=== PATIENT | male | born 1985 ===

== ENCOUNTER 2020-08-25 15:32 | Emergency (ER) | payer SELFPAY ==
[~2020-08-25] VITALS: Ht 182.9 cm; Wt 115.0 kg
--- NOTE | 2020-08-25 15:44 | NUR ---
PT PLACED ON ALL ROOM MONITORING. RESP ISOLATION, CART AND SIGNAGE IN PLACE. CALL LIGHT WITHIN REACH. EKG COMPLETED ON ARRIVAL.
[2020-08-25] MEDS ORDERED: ACETAMINOPHEN 500 MG TABLET ONE (16:13)
--- NOTE | 2020-08-25 16:26 | NUR ---
MEDS AND IVF BOLUS GIVEN PER ERP ORDER. PT UPDATED ON POC. URINAL AT BS. LAB IN TO DRAW. CALL LIGHT WITHIN REACH.
[2020-08-25] MEDS ORDERED: SODIUM CHLORIDE 0.9% 1,000ML IVBOLUS ONE (16:30)
[2020-08-25] MEDS ORDERED: ACETAMINOPHEN 500 MG TABLET PO ONE (16:30)
[2020-08-25] MEDS ORDERED: SODIUM CHLORIDE FLUSH 10ML SYR IVF ONE (16:30)
--- NOTE | 2020-08-25 16:44 | NUR ---
URINE COLLECTED/SENT TO LAB. PT C/O BEING COLD, TEMP RECHECK 102.5. CALL LIGHT WITHIN REACH.
[2020-08-25 16:46] LABS: BASOPHILS % (AUTO) 1 % (0-1); EOSINOPHILS % (AUTO) 0 % (1-7); LYMPHOCYTES % (AUTO) 11 % (22-44); MEAN CORPUSCULAR HEMOGLOBIN 28.9 pg (27.5-34.5); MEAN CORPUSCULAR HGB CONC 33.8 g/dL (33.2-36.2); MEAN PLATELET VOLUME 7.9 fL (7.4-10.4); MONOCYTES % (AUTO) 8 % (2-9); NEUTROPHILS % (AUTO) 80 % (42-75); PLATELET COUNT 202 x10^3/uL (130-400); RED BLOOD COUNT 5.02 x10^6/uL (4.38-5.82); RED CELL DISTRIBUTION WIDTH 13.5 % (9.4-14.8)
[2020-08-25 16:47] LABS: MD NO
[2020-08-25 16:52] LABS: ALANINE AMINOTRANSFERASE 48 U/L (12-78); ALBUMIN 3.9 g/dL (3.4-5.0); ANION GAP 4 mmol/L (5-15); CALCIUM 8.1 mg/dL (8.5-10.1); CHLORIDE 108 mmol/L (98-107)
[2020-08-25 16:54] LABS: ALKALINE PHOSPHATASE 66 U/L (45-117); BILIRUBIN,TOTAL 0.2 mg/dL (0.2-1.0); CREATININE 1.59 mg/dL (0.7-1.3); TOTAL PROTEIN 7.4 g/dL (6.4-8.2)
[2020-08-25 17:05] LABS: MICROSCOPIC NOT IND
[2020-08-25 17:47] VITALS: BP 142/67
== END 2020-08-25 18:08 | disposition home or self-care (01) ==
LOC: ED 18:02
DX: R50.9 Fever, unspecified (principal); Z20.822 Contact with and (suspected) exposure to COVID-19; R51.9 Headache, unspecified; R05 Cough; R53.1 Weakness; R10.84 Generalized abdominal pain
CPT/HCPCS: 36415; 71045; 80053; 81003; 83605; 84145; 85025; 87040; 93005; 99285; J7030; U0003

== ENCOUNTER 2020-08-28 20:29 | Inpatient (IN) | payer OTHER ==
[~2020-08-28] VITALS: Ht 182.9 cm; Wt 113.5 kg
--- NOTE | 2020-08-28 20:39 | NUR ---
REHAB LIAISON: PT TAKEN BACK TO ER ROOM. PT PLACED ON SPO2/BP/ECG MONITORING AT THIS TIME.
--- NOTE | 2020-08-28 20:40 | NUR ---
PLACED ON 2L O2 NC FOR RA SAT @89%
--- NOTE | 2020-08-28 20:55 | NUR ---
PT ROLLED TO ROOM IN WHEELCHAIR, PLACED ON CR MONITOR, AND O2 SAT PROBE. PT IN MILD RESPIRATORY DISTRESS, AND SITTING UP IN BED. PIV STARTED TO LEFT HAND 18G X1 ATTEMPT, AND FLUSHED EASY, AND SECURED. 1L NS HUNG PT HAS BEEN UNABLE TO KEEP FLUIDS DOWN. PA TO BEDSIDE TO EVAL PT, AND WRITE ORDERS. LAB COLLECTED WITH PIV START, AND URINE COLLECTED.
[2020-08-28] MEDS ORDERED: ONDANSETRON 2MG/ML, 2ML IVPush ONE (21:00)
[2020-08-28] MEDS ORDERED: SODIUM CHLORIDE FLUSH 10ML SYR IVF ONE (21:00)
[2020-08-28] MEDS ORDERED: SODIUM CHLORIDE 0.9% 1,000ML IVBOLUS ONE (21:00)
[2020-08-28] MEDS ORDERED: ACETAMINOPHEN 325 MG TABLET PO ONE (21:00)
[2020-08-28] MEDS ORDERED: ONDANSETRON 2MG/ML, 2ML ONE (21:10)
[2020-08-28] MEDS ORDERED: ACETAMINOPHEN 325 MG TABLET ONE (21:10)
[2020-08-28 21:24] LABS: BASOPHILS % (AUTO) 0 % (0-1); EOSINOPHILS % (AUTO) 0 % (1-7); LYMPHOCYTES % (AUTO) 10 % (22-44); MEAN CORPUSCULAR HEMOGLOBIN 29.4 pg (27.5-34.5); MEAN CORPUSCULAR HGB CONC 34.9 g/dL (33.2-36.2); MEAN PLATELET VOLUME 8.3 fL (7.4-10.4); MONOCYTES % (AUTO) 7 % (2-9); NEUTROPHILS % (AUTO) 83 % (42-75); PLATELET COUNT 157 x10^3/uL (130-400); RED BLOOD COUNT 5.03 x10^6/uL (4.38-5.82); RED CELL DISTRIBUTION WIDTH 13.6 % (9.4-14.8)
[2020-08-28 21:32] LABS: ALANINE AMINOTRANSFERASE 49 U/L (12-78); ALBUMIN 3.7 g/dL (3.4-5.0); ANION GAP 8 mmol/L (5-15); CALCIUM 8.3 mg/dL (8.5-10.1); CHLORIDE 106 mmol/L (98-107); CREATININE 1.57 mg/dL (0.7-1.3)
[2020-08-28 21:34] LABS: ALKALINE PHOSPHATASE 66 U/L (45-117); BILIRUBIN,TOTAL 0.4 mg/dL (0.2-1.0); TOTAL PROTEIN 7.8 g/dL (6.4-8.2)
[2020-08-28 21:35] LABS: MD NO
--- NOTE | 2020-08-28 22:25 | NUR ---
PT UP TO COMMODE TO USE THE RESTROOM TO STOOL. PT AMBULATORY AND STEADY GAIT, MILD RESPIRATORY DISTRESS. BREATH SOUNDS CLEAR AT THIS TIME, BILATERALLY TO AUSCULTATION. PT PLACED BACK ON CR MONITOR, AND REMAINS ON O2 NC 2 LPM. PIV INTACT AND 1LNS IVF FINISHED.
[2020-08-28] MEDS ORDERED: NS + 20MEQ KCL 1,000 ML IV ONE (22:30)
[2020-08-28] MEDS ORDERED: KETOROLAC 30 MG/1 ML IVPush ONE (22:30)
[2020-08-28] MEDS ORDERED: BISACODYL 10 MG SUPP PR PRN (23:00)
[2020-08-28] MEDS ORDERED: MELATONIN 5 MG TABLET PO PRN (23:00)
[2020-08-28] MEDS ORDERED: ALBUTEROL HFA 90 MCG/SPRAY INH PRN (23:00)
[2020-08-28] MEDS ORDERED: LIDODERM 5% PATCH TD PRN (23:00)
[2020-08-28] MEDS ORDERED: POLYETHYLENE GLYCOL 17 GM PACKET PO PRN (23:00)
[2020-08-28] MEDS ORDERED: PROMETHAZINE 25 MG/ML, 1ML IM PRN (23:00)
--- NOTE | 2020-08-28 23:00 | NUR ---
REPORT GIVEN TO KENA BENJAMIN AND PT PREPARED FOR TRANSPORT. WITH ISOLATION PRECAUTIONS. PT TRANSFERRED TO FLOOR WITHOUT INCIDENT. GALI ON MONITOR.
[2020-08-28] MEDS ORDERED: LACTATED RINGERS 1,000 ML IV SCH (23:30)
[2020-08-28 23:33] VITALS: BP 127/80
[2020-08-28] MEDS: MELATONIN 5 MG TABLET PO SCH (23:48)
[2020-08-28] MEDS: ASCORBIC ACID 500 MG TABLET PO SCH (23:48)
[2020-08-28] MEDS: CEFTRIAXONE PMX 2GM/50ML 50 ML IVPB SCH (23:48)
[2020-08-28] MEDS: ENOXAPARIN 40 MG/0.4 ML SQ SCH (23:49)
[2020-08-28] MEDS: AZITHROMYCIN 500 MG in SODIUM CHLORIDE 0.9% 250 ML IV SCH (23:56)
[2020-08-29 05:31] LABS: BASOPHILS % (AUTO) 1 % (0-1); EOSINOPHILS % (AUTO) 0 % (1-7); LYMPHOCYTES % (AUTO) 19 % (22-44); MEAN CORPUSCULAR HEMOGLOBIN 29.1 pg (27.5-34.5); MEAN CORPUSCULAR HGB CONC 34.4 g/dL (33.2-36.2); MEAN PLATELET VOLUME 8.5 fL (7.4-10.4); MONOCYTES % (AUTO) 7 % (2-9); NEUTROPHILS % (AUTO) 73 % (42-75); PLATELET COUNT 146 x10^3/uL (130-400); RED CELL DISTRIBUTION WIDTH 13.6 % (9.4-14.8)
[2020-08-29 05:33] LABS: MD NO
[2020-08-29 05:39] LABS: INTERNATIONAL NORMALIZED RATIO 1.06 (0.93-1.1); PROTHROMBIN TIME 11.3 Seconds (9.6-11.5)
[2020-08-29 05:42] LABS: ANION GAP 5 mmol/L (5-15); CALCIUM 8.1 mg/dL (8.5-10.1); CHLORIDE 108 mmol/L (98-107)
[2020-08-29 05:49] LABS: CREATININE 1.29 mg/dL (0.7-1.3)
[2020-08-29 07:22] VITALS: BP 123/71
[2020-08-29] MEDS ORDERED: DEXAMETHASONE 4 MG/ML, 1ML IVPush SCH (09:00)
[2020-08-29] MEDS: SENNA/DOCUSATE TABLET PO SCH (09:00)
[2020-08-29] MEDS ORDERED: DEXAMETHASONE 4 MG/ML, 1ML IVPush ONE (09:00)
[2020-08-29] MEDS ORDERED: REMDESIVIR 200 MG in SODIUM CHLORIDE 0.9% 250 ML IVPB ONE (09:30)
[2020-08-29] MEDS: ACETAMINOPHEN 325 MG TABLET PO PRN ×2 (09:43→20:12)
[2020-08-29] MEDS: BENZONATATE 100 MG CAPSULE PO SCH ×3 (09:43→20:11)
[2020-08-29] MEDS: ASCORBIC ACID 500 MG TABLET PO SCH ×2 (09:43→17:44)
[2020-08-29] MEDS: CHOLECALCIFEROL 5,000u TAB PO SCH (09:44)
[2020-08-29] MEDS: ZINC SULFATE 220 MG CAPSULE PO SCH (09:44)
[2020-08-29] MEDS: ONDANSETRON 2MG/ML, 2ML IVPush PRN (09:48)
[2020-08-29] MEDS ORDERED: FUROSEMIDE 20 MG/2 ML IV ONE (11:00)
[2020-08-29] MEDS: THIAMINE 100MG TABLET PO SCH (11:51)
[2020-08-29 13:15] VITALS: BP 124/80
[2020-08-29 15:07] LABS: OCCULT BLOOD NEGATIVE (NEGATIVE)
[2020-08-29 19:39] VITALS: BP 123/81
[2020-08-29] MEDS: MELATONIN 5 MG TABLET PO SCH (20:11)
[2020-08-29] MEDS: ENOXAPARIN 40 MG/0.4 ML SQ SCH (23:07)
[2020-08-29] MEDS: CEFTRIAXONE PMX 2GM/50ML 50 ML IVPB SCH (23:07)
[2020-08-29] MEDS: AZITHROMYCIN 500 MG in SODIUM CHLORIDE 0.9% 250 ML IV SCH (23:56)
[2020-08-30 01:28] VITALS: BP 120/75
[2020-08-30 05:38] LABS: BASOPHILS % (AUTO) 1 % (0-1); EOSINOPHILS % (AUTO) 0 % (1-7); LYMPHOCYTES % (AUTO) 12 % (22-44); MEAN CORPUSCULAR HEMOGLOBIN 29.3 pg (27.5-34.5); MEAN CORPUSCULAR HGB CONC 34.3 g/dL (33.2-36.2); MEAN PLATELET VOLUME 8.3 fL (7.4-10.4); MONOCYTES % (AUTO) 8 % (2-9); NEUTROPHILS % (AUTO) 80 % (42-75); PLATELET COUNT 179 x10^3/uL (130-400); RED CELL DISTRIBUTION WIDTH 13.5 % (9.4-14.8)
[2020-08-30 05:39] LABS: ANION GAP 5 mmol/L (5-15); CALCIUM 8.3 mg/dL (8.5-10.1); CHLORIDE 104 mmol/L (98-107)
[2020-08-30 05:41] LABS: D-DIMER 0.73 ug/mlFEU (0.00-0.52)
[2020-08-30 05:46] LABS: ALANINE AMINOTRANSFERASE 70 U/L (12-78); ALKALINE PHOSPHATASE 62 U/L (45-117); BILIRUBIN,TOTAL 0.3 mg/dL (0.2-1.0); CREATININE 1.25 mg/dL (0.7-1.3); TOTAL PROTEIN 7.1 g/dL (6.4-8.2)
[2020-08-30 05:49] LABS: MD NO
[2020-08-30 07:58] VITALS: BP 123/78
[2020-08-30] MEDS: BENZONATATE 100 MG CAPSULE PO SCH ×3 (08:29→21:15)
[2020-08-30] MEDS: DEXAMETHASONE 4 MG/ML, 1ML IVPush SCH (08:30)
[2020-08-30] MEDS: THIAMINE 100MG TABLET PO SCH (08:30)
[2020-08-30] MEDS: ZINC SULFATE 220 MG CAPSULE PO SCH (08:30)
[2020-08-30] MEDS: CHOLECALCIFEROL 5,000u TAB PO SCH (08:30)
[2020-08-30] MEDS: SENNA/DOCUSATE TABLET PO SCH (08:30)
[2020-08-30] MEDS: ASCORBIC ACID 500 MG TABLET PO SCH ×2 (08:30→15:37)
[2020-08-30] MEDS: ACETAMINOPHEN 325 MG TABLET PO PRN (08:34)
[2020-08-30] MEDS: ONDANSETRON 2MG/ML, 2ML IVPush PRN (08:49)
[2020-08-30] MEDS: REMDESIVIR 100 MG in SODIUM CHLORIDE 0.9% 250 ML IVPB SCH (10:05)
[2020-08-30 13:31] VITALS: BP 128/80
[2020-08-30] MEDS ORDERED: OMNIPAQUE 350 MG/ML, 100ML BOTTLE ONE (17:27)
[2020-08-30] MEDS: MELATONIN 5 MG TABLET PO SCH (21:16)
[2020-08-30 22:50] VITALS: BP 134/74
[2020-08-30] MEDS: CEFTRIAXONE PMX 2GM/50ML 50 ML IVPB SCH (22:54)
[2020-08-30] MEDS: ENOXAPARIN 40 MG/0.4 ML SQ SCH (22:55)
[2020-08-30] MEDS: AZITHROMYCIN 500 MG in SODIUM CHLORIDE 0.9% 250 ML IV SCH (23:58)
[2020-08-31 05:09] LABS: HCT (SEDRATE) 39.4 % (39.2-51.8)
[2020-08-31 05:10] LABS: BASOPHILS % (AUTO) 0 % (0-1); EOSINOPHILS % (AUTO) 0 % (1-7); LYMPHOCYTES % (AUTO) 10 % (22-44); MEAN CORPUSCULAR HEMOGLOBIN 28.5 pg (27.5-34.5); MEAN CORPUSCULAR HGB CONC 33.7 g/dL (33.2-36.2); MEAN PLATELET VOLUME 8.1 fL (7.4-10.4); MONOCYTES % (AUTO) 8 % (2-9); NEUTROPHILS % (AUTO) 82 % (42-75); PLATELET COUNT 231 x10^3/uL (130-400); RED BLOOD COUNT 4.68 x10^6/uL (4.38-5.82); RED CELL DISTRIBUTION WIDTH 13.4 % (9.4-14.8)
[2020-08-31 05:11] LABS: MD NO
[2020-08-31 05:23] LABS: ANION GAP 6 mmol/L (5-15); CALCIUM 8.5 mg/dL (8.5-10.1); CHLORIDE 104 mmol/L (98-107)
[2020-08-31 05:33] LABS: ALANINE AMINOTRANSFERASE 83 U/L (12-78); ALKALINE PHOSPHATASE 60 U/L (45-117); BILIRUBIN,TOTAL 0.3 mg/dL (0.2-1.0); CREATININE 1.17 mg/dL (0.7-1.3)
[2020-08-31 08:26] VITALS: BP 126/79
[2020-08-31] MEDS: SENNA/DOCUSATE TABLET PO SCH (09:00)
[2020-08-31] MEDS: REMDESIVIR 100 MG in SODIUM CHLORIDE 0.9% 250 ML IVPB SCH (09:35)
[2020-08-31] MEDS: BENZONATATE 100 MG CAPSULE PO SCH ×3 (09:35→20:41)
[2020-08-31] MEDS: ASCORBIC ACID 500 MG TABLET PO SCH ×2 (09:35→17:29)
[2020-08-31] MEDS: DEXAMETHASONE 4 MG/ML, 1ML IVPush SCH (09:35)
[2020-08-31] MEDS: ZINC SULFATE 220 MG CAPSULE PO SCH (09:35)
[2020-08-31] MEDS: CHOLECALCIFEROL 5,000u TAB PO SCH (09:36)
[2020-08-31] MEDS: THIAMINE 100MG TABLET PO SCH (09:36)
[2020-08-31] MEDS: ACETAMINOPHEN 325 MG TABLET PO PRN ×2 (09:50→20:41)
[2020-08-31 12:11] VITALS: BP 122/69
[2020-08-31] MEDS: GUAIFENESIN/DM 200-20MG, 10ML UDC PO PRN ×2 (17:29→23:33)
[2020-08-31 19:39] VITALS: BP 138/84
[2020-08-31] MEDS: MELATONIN 5 MG TABLET PO SCH (20:41)
[2020-08-31] MEDS: ENOXAPARIN 40 MG/0.4 ML SQ SCH (22:59)
[2020-08-31] MEDS: CEFTRIAXONE PMX 2GM/50ML 50 ML IVPB SCH (22:59)
[2020-09-01] MEDS: AZITHROMYCIN 500 MG in SODIUM CHLORIDE 0.9% 250 ML IV SCH (00:02)
[2020-09-01 02:05] VITALS: BP 104/67
[2020-09-01 05:49] LABS: CHLORIDE 107 mmol/L (98-107)
[2020-09-01 05:56] LABS: ALANINE AMINOTRANSFERASE 148 U/L (12-78); ALKALINE PHOSPHATASE 64 U/L (45-117); ANION GAP 7 mmol/L (5-15); BILIRUBIN,TOTAL 0.5 mg/dL (0.2-1.0); CALCIUM 8.6 mg/dL (8.5-10.1); CREATININE 1.05 mg/dL (0.7-1.3); TOTAL PROTEIN 6.8 g/dL (6.4-8.2)
[2020-09-01] MEDS: SENNA/DOCUSATE TABLET PO SCH (08:30)
[2020-09-01] MEDS: BENZONATATE 100 MG CAPSULE PO SCH ×3 (08:31→22:23)
[2020-09-01] MEDS: ZINC SULFATE 220 MG CAPSULE PO SCH (08:31)
[2020-09-01] MEDS: CHOLECALCIFEROL 5,000u TAB PO SCH (08:31)
[2020-09-01] MEDS: DEXAMETHASONE 4 MG/ML, 1ML IVPush SCH (08:31)
[2020-09-01] MEDS: THIAMINE 100MG TABLET PO SCH (08:31)
[2020-09-01] MEDS: ASCORBIC ACID 500 MG TABLET PO SCH ×2 (08:31→17:06)
[2020-09-01 08:49] VITALS: BP 132/72
[2020-09-01] MEDS: ACETAMINOPHEN 325 MG TABLET PO PRN ×2 (08:49→22:23)
[2020-09-01] MEDS: REMDESIVIR 100 MG in SODIUM CHLORIDE 0.9% 250 ML IVPB SCH (09:52)
[2020-09-01 14:52] VITALS: BP 132/78
[2020-09-01 20:57] VITALS: BP 129/72
[2020-09-01] MEDS: ENOXAPARIN 40 MG/0.4 ML SQ SCH (22:23)
[2020-09-01] MEDS: CEFTRIAXONE PMX 2GM/50ML 50 ML IVPB SCH (22:24)
[2020-09-01] MEDS: MELATONIN 5 MG TABLET PO SCH (22:24)
[2020-09-02] MEDS: AZITHROMYCIN 500 MG in SODIUM CHLORIDE 0.9% 250 ML IV SCH ×2 (00:21→23:58)
[2020-09-02 00:25] VITALS: BP 116/66
[2020-09-02 05:31] LABS: CHLORIDE 107 mmol/L (98-107)
[2020-09-02 05:38] LABS: ALANINE AMINOTRANSFERASE 170 U/L (12-78); ALKALINE PHOSPHATASE 62 U/L (45-117); ANION GAP 4 mmol/L (5-15); BILIRUBIN,TOTAL 0.4 mg/dL (0.2-1.0); CALCIUM 8.5 mg/dL (8.5-10.1); CREATININE 1.08 mg/dL (0.7-1.3); TOTAL PROTEIN 6.7 g/dL (6.4-8.2)
[2020-09-02 08:43] VITALS: BP 126/72
[2020-09-02] MEDS: ZINC SULFATE 220 MG CAPSULE PO SCH (08:49)
[2020-09-02] MEDS: BENZONATATE 100 MG CAPSULE PO SCH ×3 (08:49→22:51)
[2020-09-02] MEDS: THIAMINE 100MG TABLET PO SCH (08:49)
[2020-09-02] MEDS: ASCORBIC ACID 500 MG TABLET PO SCH ×2 (08:49→16:22)
[2020-09-02] MEDS: DEXAMETHASONE 4 MG/ML, 1ML IVPush SCH (08:49)
[2020-09-02] MEDS: SENNA/DOCUSATE TABLET PO SCH (08:49)
[2020-09-02] MEDS: CHOLECALCIFEROL 5,000u TAB PO SCH (08:49)
[2020-09-02] MEDS: REMDESIVIR 100 MG in SODIUM CHLORIDE 0.9% 250 ML IVPB SCH (09:55)
[2020-09-02 14:50] VITALS: BP 135/84
[2020-09-02 21:45] VITALS: BP 125/75
[2020-09-02] MEDS: MELATONIN 5 MG TABLET PO SCH (22:51)
[2020-09-02] MEDS: ENOXAPARIN 40 MG/0.4 ML SQ SCH (22:52)
[2020-09-02] MEDS: CEFTRIAXONE PMX 2GM/50ML 50 ML IVPB SCH (22:52)
[2020-09-03 02:20] VITALS: BP 114/70
[2020-09-03 05:19] LABS: CHLORIDE 104 mmol/L (98-107)
[2020-09-03 05:26] LABS: ALANINE AMINOTRANSFERASE 130 U/L (12-78); ALBUMIN 3.1 g/dL (3.4-5.0); ALKALINE PHOSPHATASE 63 U/L (45-117); ANION GAP 6 mmol/L (5-15); BILIRUBIN,TOTAL 0.5 mg/dL (0.2-1.0); CALCIUM 8.6 mg/dL (8.5-10.1); CREATININE 1.01 mg/dL (0.7-1.3); TOTAL PROTEIN 6.9 g/dL (6.4-8.2)
[2020-09-03] MEDS: SENNA/DOCUSATE TABLET PO SCH (08:04)
[2020-09-03 08:21] VITALS: BP 98/59
[2020-09-03] MEDS: THIAMINE 100MG TABLET PO SCH (08:26)
[2020-09-03] MEDS: ASCORBIC ACID 500 MG TABLET PO SCH ×2 (08:26→16:29)
[2020-09-03] MEDS: DEXAMETHASONE 4 MG/ML, 1ML IVPush SCH (08:26)
[2020-09-03] MEDS: BENZONATATE 100 MG CAPSULE PO SCH ×2 (08:26→16:28)
[2020-09-03] MEDS: CHOLECALCIFEROL 5,000u TAB PO SCH (08:26)
[2020-09-03] MEDS: ZINC SULFATE 220 MG CAPSULE PO SCH (08:26)
[2020-09-03 13:49] VITALS: BP 115/67
[2020-09-03] MEDS ORDERED: THIA100T67 PO (16:04)
[2020-09-03] MEDS ORDERED: BENZ-17 PO (16:04)
[2020-09-03] MEDS ORDERED: PRED10TA PO (16:04)
[2020-09-03] MEDS ORDERED: CHOL500045 PO (16:04)
[2020-09-03] MEDS ORDERED: ASCO500T9 PO (16:04)
== END 2020-09-03 16:49 | disposition home or self-care (01) | DRG 871 ==
LOC: ED 22:36 → EDIP 22:37 → 3N 23:08
PROVIDERS: ADMIT Family Medicine; ATTEND Hospitalist
PROC: XW033E5 Introduction of Remdesivir Anti-infective into Peripheral Vein, Percutaneous Approach, New Technology Group 5 (ICD-10-PCS; principal; 2020-08-29)
DX: A41.89 Other specified sepsis (principal); U07.1 COVID-19; J12.82 Pneumonia due to coronavirus disease 2019; J96.01 Acute respiratory failure with hypoxia; N17.0 Acute kidney failure with tubular necrosis; E86.0 Dehydration; R79.89 Other specified abnormal findings of blood chemistry
CPT/HCPCS: 36415; 71045; 71275; 80048; 80053; 82272; 82728; 83605; 83615; 83735; 83880; 84100; 84145; 85025; 85379; 85384; 85610; 85651; 86140; 87040; 93005; 96361; 96374; G0378; J0456; J0696; J1100; J1650; J1885; J2405; Q9967; J1940; J7030; J7050; J7120